=== PATIENT | male | born 1930 | race Asian ===

== ENCOUNTER 2019-02-04 23:45 | Inpatient (IN) | payer MEDICARE, MEDICAID ==
[2019-02-05] MEDS ORDERED: CYCLOSPORINE OP SCH (09:00)
[2019-02-05] MEDS: Multivitamin Tab PO SCH (09:30)
[2019-02-05] MEDS: Fenofibrate, Micronized 134 mg Cap PO SCH (09:30)
[2019-02-05] MEDS: Atorvastatin Calcium 10 MG TAB PO SCH (09:30)
[2019-02-05] MEDS: Ipratropium Neb 0.5 mg/2.5 mL UD HHN SCH ×3 (11:00→20:00)
[2019-02-05] MEDS: Polyvinyl Alcohol Ophth Soln 15 mL Bottle EACH EYE SCH (20:15)
[2019-02-05] MEDS ORDERED: Haloperidol Lactate 5 mg/mL 1mL Vial IM ONE (20:52)
[2019-02-05] MEDS ORDERED: MIRTAZAPINE 15 MG PO SCH (21:00)
[2019-02-06] MEDS: Ipratropium Neb 0.5 mg/2.5 mL UD HHN SCH ×4 (07:05→21:05)
[2019-02-06] MEDS: Polyvinyl Alcohol Ophth Soln 15 mL Bottle EACH EYE SCH ×2 (10:27→21:04)
[2019-02-06] MEDS: Atorvastatin Calcium 10 MG TAB PO SCH (10:27)
[2019-02-06] MEDS: Fenofibrate, Micronized 134 mg Cap PO SCH (10:28)
[2019-02-06] MEDS: Multivitamin Tab PO SCH (10:28)
--- NOTE | 2019-02-06 20:25 | Internal Medicine Prog Note ---
Internal Medicine Subjective - Subjective Service Date: 02/06/19 Patient seen and examined:: with staff Patient is:: awake, non-verbal, in bed, confused Per staff patient has:: no adverse event Internal Medicine Objective - Physical Exam Vitals and I&O: Vital Signs Temp 97.8 F 02/06/19 20:01 Pulse 86 02/06/19 20:01 Resp 20 02/06/19 20:01 BP 130/79 02/06/19 20:01 Pulse Ox 97 02/06/19 20:01 Intake & Output 02/06/19 02/06/19 02/07/19 06:59 18:59 06:59 Intake Total 120 1200 240 Balance 120 1200 240 Intake: Oral 120 1200 240 Other: # Voids 3 1 # Bowel Movements 1 Active Medications: Current Medications Acetaminophen (Tylenol) 650 mg PO Q4HR PRN PRN Reason: Mild Pain / Temp above 100 Stop: 04/06/19 02:36 Alendronate Sodium (Fosamax) [address] [facility] Stop: 04/08/19 06:29 Artificial Tears (Artificial Tears Ophth Soln) 1 drop EACH EYE Q12HR [facility] Stop: 04/06/19 08:59 Last Admin: 02/06/19 10:27 Dose: 1 drop Atorvastatin Calcium (Lipitor) [address] [facility]; Protocol Stop: 04/06/19 08:59 Last Admin: 02/06/19 10:27 Dose: 10 mg Citalopram Hydrobromide (Celexa) [address] [facility]; Protocol Stop: 04/07/19 09:59 Last Admin: 02/06/19 10:27 Dose: 40 mg Clopidogrel Bisulfate (Plavix) [address] [facility] Stop: 04/06/19 08:59 Last Admin: 02/06/19 10:28 Dose: 75 mg Fenofibrate (Tricor) [address] [facility] Stop: 04/06/19 08:59 Last Admin: 02/06/19 10:28 Dose: 134 mg Ipratropium [place] (Atrovent Neb 0.5mg/2.5ml) 0.[address] [facility] Stop: 04/06/19 10:59 Last Admin: 02/06/19 16:54 Dose: Not Given Lorazepam (Ativan) 0.5 mg PO Q4HR PRN; Protocol PRN Reason: Anxiety Stop: 03/07/19 02:36 Memantine (Namenda) 10 mg PO BID [facility] Stop: 04/06/19 08:59 Last Admin: 02/06/19 16:54 Dose: 10 mg Mirtazapine (Remeron) 15 mg PO HS [facility]; Protocol Stop: 04/06/19 20:59 Last Admin: 02/05/19 20:15 Dose: Not Given Multivitamins/Vitamin C (Theragran) 1 tab PO DAILY [facility] Stop: 04/06/19 08:59 Last Admin: 02/06/19 10:28 Dose: 1 tab Quetiapine Fumarate (Seroquel) 25 mg PO QAM [facility]; Protocol Stop: 04/06/19 08:59 Last Admin: 02/06/19 10:29 Dose: 25 mg Quetiapine Fumarate (Seroquel) 200 mg PO HS [facility]; Protocol Stop: 04/06/19 20:59 Last Admin: 02/05/19 20:15 Dose: Not Given Tamsulosin HCl (Flomax) 0.4 mg PO DAILY [facility] Stop: 04/06/19 08:59 Last Admin: 02/06/19 10:31 Dose: 0.4 mg Zolpidem Tartrate (Ambien) 5 mg PO HS PRN PRN Reason: Insomnia Stop: 04/06/19 02:36 General: demented HEENT: NC/AT, PERRLA, EOMI, anicteric sclerae, throat clear Neck: Supple, No JVD, No thyromegaly, +2 carotid pulse wo bruit, No LAD Lungs: CTAB Cardiovascular: RRR, Normal S1, Normal S2, without murmur Abdomen: soft, non-tender, non-distended Extremities: clear Neurological: no change Internal Medicine Assmt/Plan - Assessment Assessment: 1.CAD. 2.BPH. 3.HYPERLIPIDEMIA. 4.PSYCHOSIS - Plan Plan: CONTINUE ON CURRENT MEDICATION AND DIET
[2019-02-07] MEDS: Ipratropium Neb 0.5 mg/2.5 mL UD HHN SCH ×4 (06:17→18:01)
[2019-02-07] MEDS: Multivitamin Tab PO SCH (08:31)
[2019-02-07] MEDS: Atorvastatin Calcium 10 MG TAB PO SCH (08:31)
[2019-02-07] MEDS: Fenofibrate, Micronized 134 mg Cap PO SCH (08:31)
[2019-02-07] MEDS: Polyvinyl Alcohol Ophth Soln 15 mL Bottle EACH EYE SCH ×2 (08:40→21:42)
--- NOTE | 2019-02-07 21:17 | Internal Medicine Prog Note ---
Internal Medicine Subjective - Subjective Service Date: 02/07/19 Patient seen and examined:: without staff (HE IS CONFUSED) Patient is:: awake, non-verbal, in bed, confused Per staff patient has:: no adverse event Internal Medicine Objective - Physical Exam Vitals and I&O: Vital Signs Temp 98.9 F 02/07/19 20:03 Pulse 97 02/07/19 20:03 Resp 20 02/07/19 20:03 BP 140/78 02/07/19 20:03 Pulse Ox 95 02/07/19 20:03 Intake & Output 02/07/19 02/07/19 02/08/19 06:59 18:59 06:59 Intake Total 300 1200 240 Balance 300 1200 240 Intake: Oral 300 1200 240 Other: # Voids 1 3 2 # Bowel Movements 0 0 Active Medications: Current Medications Acetaminophen (Tylenol) 650 mg PO Q4HR PRN PRN Reason: Mild Pain / Temp above 100 Stop: 04/06/19 02:36 Alendronate Sodium (Fosamax) 70 mg PO QSAT [facility] Stop: 04/08/19 06:29 Last Admin: 02/07/19 06:16 Dose: 70 mg Artificial Tears (Artificial Tears Ophth Soln) 1 drop EACH EYE Q12HR [facility] Stop: 04/06/19 08:59 Last Admin: 02/07/19 08:40 Dose: 1 drop Atorvastatin Calcium (Lipitor) 10 mg PO DAILY [facility]; Protocol Stop: 04/06/19 08:59 Last Admin: 02/07/19 08:31 Dose: 10 mg Citalopram Hydrobromide (Celexa) 40 mg PO DAILY [facility]; Protocol Stop: 04/07/19 09:59 Last Admin: 02/07/19 08:31 Dose: 40 mg Clopidogrel Bisulfate (Plavix) 75 mg PO DAILY [facility] Stop: 04/06/19 08:59 Last Admin: 02/07/19 08:31 Dose: 75 mg Fenofibrate (Tricor) 134 mg PO DAILY [facility] Stop: 04/06/19 08:59 Last Admin: 02/07/19 08:31 Dose: 134 mg Ipratropium [place] (Atrovent Neb 0.5mg/2.5ml) 0.5 mg HHN QIDRT [facility] Stop: 04/06/19 10:59 Last Admin: 02/07/19 18:01 Dose: 0.5 mg Lorazepam (Ativan) 0.5 mg PO Q4HR PRN; Protocol PRN Reason: Anxiety Stop: 03/07/19 02:36 Memantine (Namenda) 10 mg PO BID [facility] Stop: 04/06/19 08:59 Last Admin: 02/07/19 16:36 Dose: 10 mg Mirtazapine (Remeron) 15 mg PO HS [facility]; Protocol Stop: 04/06/19 20:59 Last Admin: 02/06/19 20:59 Dose: 15 mg Multivitamins/Vitamin C (Theragran) 1 tab PO DAILY [facility] Stop: 04/06/19 08:59 Last Admin: 02/07/19 08:31 Dose: 1 tab Quetiapine Fumarate (Seroquel) 25 mg PO QAM [facility]; Protocol Stop: 04/06/19 08:59 Last Admin: 02/07/19 08:31 Dose: 25 mg Quetiapine Fumarate (Seroquel) 200 mg PO HS [facility]; Protocol Stop: 04/06/19 20:59 Last Admin: 02/06/19 20:59 Dose: 200 mg Tamsulosin HCl (Flomax) 0.4 mg PO DAILY [facility] Stop: 04/06/19 08:59 Last Admin: 02/07/19 08:32 Dose: 0.4 mg Zolpidem Tartrate (Ambien) 5 mg PO HS PRN PRN Reason: Insomnia Stop: 04/06/19 02:36 General: demented HEENT: NC/AT, PERRLA, EOMI, anicteric sclerae, throat clear Neck: Supple, No JVD, No thyromegaly, +2 carotid pulse wo bruit, No LAD Lungs: CTAB Cardiovascular: RRR, Normal S1, Normal S2, without murmur Abdomen: soft, non-tender, non-distended Extremities: clear Neurological: no change Internal Medicine Assmt/Plan - Assessment Assessment: 1.CAD. 2.BPH. 3.HYPERLIPIDEMIA. 4.PSYCHOSIS - Plan Plan: CONTINUE ON CURRENT MEDICATION AND DIET
[2019-02-08] MEDS: Ipratropium Neb 0.5 mg/2.5 mL UD HHN SCH ×4 (06:48→18:13)
[2019-02-08] MEDS: Fenofibrate, Micronized 134 mg Cap PO SCH (08:48)
[2019-02-08] MEDS: Polyvinyl Alcohol Ophth Soln 15 mL Bottle EACH EYE SCH ×2 (08:48→21:19)
[2019-02-08] MEDS: Atorvastatin Calcium 10 MG TAB PO SCH (08:49)
[2019-02-08] MEDS: Multivitamin Tab PO SCH (08:49)
--- NOTE | 2019-02-08 19:13 | Internal Medicine Prog Note ---
Internal Medicine Subjective - Subjective Service Date: 02/08/19 Patient seen and examined:: without staff (HE IS CONFUSED) Patient is:: awake, non-verbal, in bed, confused Per staff patient has:: no adverse event Internal Medicine Objective - Physical Exam Vitals and I&O: Vital Signs Temp 97.6 F 02/08/19 16:27 Pulse 92 02/08/19 16:27 Resp 20 02/08/19 16:27 BP 155/86 02/08/19 16:27 Pulse Ox 97 02/08/19 16:27 Intake & Output 02/08/19 02/08/19 02/09/19 06:59 18:59 06:59 Intake Total 360 900 Balance 360 900 Intake: Oral 360 900 Other: # Voids 2 3 # Bowel Movements 1 Active Medications: Current Medications Acetaminophen (Tylenol) 650 mg PO Q4HR PRN PRN Reason: Mild Pain / Temp above 100 Stop: 04/06/19 02:36 Alendronate Sodium (Fosamax) 70 mg PO QSAT [facility] Stop: 04/08/19 06:29 Last Admin: 02/07/19 06:16 Dose: 70 mg Artificial Tears (Artificial Tears Ophth Soln) 1 drop EACH EYE Q12HR [facility] Stop: 04/06/19 08:59 Last Admin: 02/08/19 08:48 Dose: 1 drop Atorvastatin Calcium (Lipitor) 10 mg PO DAILY [facility]; Protocol Stop: 04/06/19 08:59 Last Admin: 02/08/19 08:49 Dose: 10 mg Citalopram Hydrobromide (Celexa) 40 mg PO DAILY [facility]; Protocol Stop: 04/07/19 09:59 Last Admin: 02/08/19 08:49 Dose: 40 mg Clopidogrel Bisulfate (Plavix) 75 mg PO DAILY [facility] Stop: 04/06/19 08:59 Last Admin: 02/08/19 08:49 Dose: 75 mg Donepezil HCl (Aricept) 5 mg PO DAILY [facility] Stop: 04/09/19 08:59 Last Admin: 02/08/19 08:49 Dose: 5 mg Fenofibrate (Tricor) 134 mg PO DAILY [facility] Stop: 04/06/19 08:59 Last Admin: 02/08/19 08:48 Dose: 134 mg Ipratropium [place] (Atrovent Neb 0.5mg/2.5ml) 0.5 mg HHN QIDRT [facility] Stop: 04/06/19 10:59 Last Admin: 02/08/19 18:13 Dose: 0.5 mg Lorazepam (Ativan) 0.5 mg PO Q4HR PRN; Protocol PRN Reason: Anxiety Stop: 03/07/19 02:36 Memantine (Namenda) 10 mg PO BID [facility] Stop: 04/06/19 08:59 Last Admin: 02/08/19 17:22 Dose: 10 mg Mirtazapine (Remeron) 15 mg PO HS [facility]; Protocol Stop: 04/06/19 20:59 Last Admin: 02/07/19 21:42 Dose: 15 mg Multivitamins/Vitamin C (Theragran) 1 tab PO DAILY [facility] Stop: 04/06/19 08:59 Last Admin: 02/08/19 08:49 Dose: 1 tab [facility]) [facility] Protocol Stop: 04/06/19 08:59 Last Admin: 02/08/19 08:49 Dose: 25 mg Quetiapine Fumarate (Seroquel) 200 mg PO HS [facility]; Protocol Stop: 04/06/19 20:59 Last Admin: 02/07/19 21:42 Dose: 200 mg Tamsulosin HCl (Flomax) 0.4 mg PO DAILY [facility] Stop: 04/06/19 08:59 Last Admin: 02/08/19 08:50 Dose: 0.4 mg Zolpidem Tartrate (Ambien) 5 mg PO HS PRN PRN Reason: Insomnia Stop: 04/06/19 02:36 General: demented HEENT: NC/AT, PERRLA, EOMI, anicteric sclerae, throat clear Neck: Supple, No JVD, No thyromegaly, +2 carotid pulse wo bruit, No LAD Lungs: CTAB Cardiovascular: RRR, Normal S1, Normal S2, without murmur Abdomen: soft, non-tender, non-distended Extremities: clear Neurological: no change Internal Medicine Assmt/Plan - Assessment Assessment: 1.CAD. 2.BPH. 3.HYPERLIPIDEMIA. 4.PSYCHOSIS - Plan Plan: CONTINUE ON CURRENT MEDICATION AND DIET
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
--- NOTE | 2019-02-08 20:34 | History & Physical ---
ADMIT DATE: 02/04/2019 HISTORY OF PRESENT ILLNESS: The patient is an 88-year-old male with long history of asthma, benign prostatic hypertrophy, hyperlipidemia and psychosis, admitted to [facility] under Dr. Lowe's service. The patient is very confused, combative, poor historian. No fever, no nausea, no vomiting, no pain. PAST MEDICAL HISTORY: Significant for asthma, benign prostatic hypertrophy, hyperlipidemia, and psychosis. PAST SURGICAL HISTORY: No recent surgery. ALLERGIES: None. MEDICATIONS: Follow admission reconciliation. SOCIAL HISTORY: No smoking, no alcohol, no drug. FAMILY HISTORY: Noncontributory. REVIEW OF SYSTEMS: RENAL SYSTEM: No history of chronic renal disorder. CARDIOVASCULAR SYSTEM: No coronary artery disease. ENDOCRINE SYSTEM: No diabetes or thyroid problem. GASTROINTESTINAL SYSTEM: No upper or lower GI bleed. NEUROLOGICAL SYSTEM: Seizure disorder. SKELETOMUSCULAR SYSTEM: No muscular dystrophy. HEMATOLOGICAL SYSTEM: No bleeding tendency. RESPIRATORY SYSTEM: History of asthma. GENITOURINARY SYSTEM: He has a benign prostatic hypertrophy. PHYSICAL EXAMINATION: GENERAL: He is awake, alert, combative. VITAL SIGNS: Temperature 97.7, heart rate 64, blood pressure 121/64. HEENT: Normocephalic. Pupils are reacting to light and accommodation. Sclerae clear. NECK: Supple. Negative for lymphadenopathy, JVD or bruits. CHEST: Entry of air bilaterally normal. No rhonchi or wheezing. HEART: S1, S2 normal. No gallop rhythm. ABDOMEN: Soft, bowel sounds positive. EXTREMITIES: No edema. BACK: Normal vertebra. GENITALIA AND RECTAL: Done by primary physician, no complaint. NEUROLOGIC: He is awake, alert, confused. No focal muscle deficit. ASSESSMENT: 1. Asthma. 2. Benign prostatic hypertrophy. 3. Hyperlipidemia. 4. Psychosis. PLAN: The patient admitted to the hospital under Dr. Lowe's service. Problem addressed during hospitalization is psychosis. Medical problems addressed at discharge, benign prostatic hypertrophy, asthma. The patient is medically stable for activity. Thank you, Dr. Lowe, for asking me to see your patient. The patient is a full code. JOB# [id number]
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
--- NOTE | 2019-02-09 00:22 | Progress Notes ---
DATE: 02/08/[address] Lowe. IDENTIFYING DATA: An 88-year-old male. Nursing report the patient mostly disengaged, withdrawn. Today on [id number] evaluation, continues to refuse to be interviewed. He turns away upon approach. MENTAL STATUS EXAMINATION: Withdrawn, agitated. ASSESSMENT AND PLAN: Due to the patient's ongoing withdrawn state, but also comorbid psychotic symptoms that resulted into aggressive behavior. We will continue monitoring and evaluating and continue with primary psychiatrist's treatment plan and goals. We will augment with Aricept. JOB# [id number]
[2019-02-09] MEDS: Ipratropium Neb 0.5 mg/2.5 mL UD HHN SCH ×4 (06:30→18:10)
[2019-02-09] MEDS: Polyvinyl Alcohol Ophth Soln 15 mL Bottle EACH EYE SCH ×2 (08:55→20:40)
[2019-02-09] MEDS: Fenofibrate, Micronized 134 mg Cap PO SCH (08:55)
[2019-02-09] MEDS: Multivitamin Tab PO SCH (08:55)
[2019-02-09] MEDS: Atorvastatin Calcium 10 MG TAB PO SCH (08:55)
--- NOTE | 2019-02-09 18:42 | Internal Medicine Prog Note ---
Internal Medicine Subjective - Subjective Service Date: 02/09/19 Patient seen and examined:: without staff (HE IS STILL CONFUSED) Patient is:: awake, non-verbal, in bed, confused Per staff patient has:: no adverse event Internal Medicine Objective - Physical Exam Vitals and I&O: Vital Signs Temp 99.0 F 02/09/19 14:34 Pulse 103 02/09/19 14:34 Resp 18 02/09/19 14:34 BP 135/74 02/09/19 14:34 Pulse Ox 97 02/09/19 14:34 Intake & Output 02/08/19 02/09/19 02/09/19 18:59 06:59 18:59 Intake Total 900 60 900 Balance 900 60 900 Intake: Oral 900 60 900 Other: # Voids 3 3 3 # Bowel Movements 1 0 1 Active Medications: Current Medications Acetaminophen (Tylenol) 650 mg PO Q4HR PRN PRN Reason: Mild Pain / Temp above 100 Stop: 04/06/19 02:36 Alendronate Sodium (Fosamax) 70 mg PO QSAT [facility] Stop: 04/08/19 06:29 Last Admin: 02/07/19 06:16 Dose: 70 mg Artificial Tears (Artificial Tears Ophth Soln) 1 drop EACH EYE Q12HR [facility] Stop: 04/06/19 08:59 Last Admin: 02/09/19 08:55 Dose: 1 drop Atorvastatin Calcium (Lipitor) 10 mg PO DAILY [facility]; Protocol Stop: 04/06/19 08:59 Last Admin: 02/09/19 08:55 Dose: 10 mg Citalopram Hydrobromide (Celexa) 40 mg PO DAILY [facility]; Protocol Stop: 04/07/19 09:59 Last Admin: 02/09/19 08:56 Dose: 40 mg Clopidogrel Bisulfate (Plavix) 75 mg PO DAILY [facility] Stop: 04/06/19 08:59 Last Admin: 02/09/19 08:55 Dose: 75 mg Donepezil HCl (Aricept) 5 mg PO DAILY [facility] Stop: 04/09/19 08:59 Last Admin: 02/09/19 08:55 Dose: 5 mg Fenofibrate (Tricor) 134 mg PO DAILY [facility] Stop: 04/06/19 08:59 Last Admin: 02/09/19 08:55 Dose: 134 mg Ipratropium [place] (Atrovent Neb 0.5mg/2.5ml) 0.5 mg HHN QIDRT [facility] Stop: 04/06/19 10:59 Last Admin: 02/09/19 18:10 Dose: 0.5 mg Lorazepam (Ativan) 0.5 mg PO Q4HR [facility]; Protocol PRN Reason: Anxiety Stop: 03/07/19 02:36 Memantine (Namenda) 10 mg PO BID [facility] Stop: 04/06/19 08:59 Last Admin: 02/09/19 16:24 Dose: 10 mg Mirtazapine (Remeron) 15 mg PO HS [facility]; Protocol Stop: 04/06/19 20:59 Last Admin: 02/08/19 21:19 Dose: 15 mg Multivitamins/Vitamin C (Theragran) 1 tab PO DAILY [facility] Stop: 04/06/19 08:59 Last Admin: 02/09/19 08:55 Dose: 1 tab Quetiapine Fumarate (Seroquel) 25 mg PO QAM [facility]; Protocol Stop: 04/06/19 08:59 Last Admin: 02/09/19 08:56 Dose: 25 mg Quetiapine Fumarate (Seroquel) 200 mg PO HS [facility]; Protocol Stop: 04/06/19 20:59 Last Admin: 02/08/19 21:20 Dose: 200 mg Tamsulosin HCl (Flomax) 0.4 mg PO DAILY [facility] Stop: 04/06/19 08:59 Last Admin: 02/09/19 08:55 Dose: 0.4 mg Zolpidem Tartrate (Ambien) 5 mg PO HS PRN PRN Reason: Insomnia Stop: 04/06/19 02:36 General: demented HEENT: NC/AT, PERRLA, EOMI, anicteric sclerae, throat clear Neck: Supple, No JVD, No thyromegaly, +2 carotid pulse wo bruit, No LAD Lungs: CTAB Cardiovascular: RRR, Normal S1, Normal S2, without murmur Abdomen: soft, non-tender, non-distended Extremities: clear Neurological: no change Internal Medicine Assmt/Plan - Assessment Assessment: 1.CAD. 2.BPH. 3.HYPERLIPIDEMIA. 4.PSYCHOSIS - Plan Plan: CONTINUE ON CURRENT MEDICATION AND DIET
--- NOTE | 2019-02-10 00:48 | Progress Notes ---
DATE: 02/09/2019 FOLLOWUP PROGRESS NOTE Case was discussed with staff of the patient, reviewed records. The patient continues to be unpredictable, impulsive. We tried to send to [facility], apparently was not accepted him, so I did not accept him first, but then also today they did not accept him. The patient continues to have episodes of agitation and irritability. He continues to be isolating himself. Continues to have poor insight, getting aggressive sometimes. Continues to be unable to make safe plan for self-care. His daughter wants him to be leaving, she does not like it here because of language barrier. No side effects with the medication, no sedation, no nausea and no extrapyramidal symptoms. We will continue to work with the patient in group therapy, milieu therapy, adjust the medication as needed. JOB# [id number] MOJGAN
[2019-02-10] MEDS: Ipratropium Neb 0.5 mg/2.5 mL UD HHN SCH ×2 (06:36→11:50)
[2019-02-10] MEDS: Multivitamin Tab PO SCH (08:07)
[2019-02-10] MEDS: Atorvastatin Calcium 10 MG TAB PO SCH (08:08)
[2019-02-10] MEDS: Fenofibrate, Micronized 134 mg Cap PO SCH (08:08)
[2019-02-10] MEDS: Polyvinyl Alcohol Ophth Soln 15 mL Bottle EACH EYE SCH (08:15)
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
== END 2019-02-10 14:45 | disposition home or self-care (01) | DRG 885 ==
LOC: GERO 23:45
PROVIDERS: ADMIT Psychiatry & Neurology Psychiatry; ATTEND Psychiatry & Neurology Psychiatry
DX: F29 Unspecified psychosis not due to a substance or known physiological condition (principal); F03.91 Unspecified dementia, unspecified severity, with behavioral disturbance; M81.0 Age-related osteoporosis without current pathological fracture; N40.0 Benign prostatic hyperplasia without lower urinary tract symptoms; E78.5 Hyperlipidemia, unspecified; J45.909 Unspecified asthma, uncomplicated; I25.10 Atherosclerotic heart disease of native coronary artery without angina pectoris; Z95.0 Presence of cardiac pacemaker
CPT/HCPCS: 83036-90; 90779; J1200; J1630; J2060; Z7610